=== PATIENT | male | born 1980 | race Caucasian/White ===

== ENCOUNTER 2022-10-12 09:40 | Emergency (ER) | payer OTHER ==
[2022-10-12 09:57] VITALS: BP 160/84; PULSE 90; RESP 18; TEMP 98.9; BMI 25.9
[2022-10-12] MEDS ORDERED: ACETAMINOPHEN 500 MG TABLET (FP) PO ONE (09:58)
[2022-10-12] MEDS ORDERED: DIPHTH,PERTUSS(ACELL),TET 0.5 ML DISP.SYRIN IM ONE ×2 (09:58→10:11)
[2022-10-12] MEDS ORDERED: ACETAMINOPHEN 500 MG TABLET (FP) ONE (10:10)
== END 2022-10-12 10:29 | disposition home or self-care (01) ==
LOC: FER 09:40
PROC: 0HQGXZZ Repair Left Hand Skin, External Approach (ICD-10-PCS; principal; 2022-10-12)
PROC: 3E0234Z Introduction of Serum, Toxoid and Vaccine into Muscle, Percutaneous Approach (ICD-10-PCS; 2022-10-12)
DX: S61.012A Laceration without foreign body of left thumb without damage to nail, initial encounter (principal); S61.213A Laceration without foreign body of left middle finger without damage to nail, initial encounter; W26.8XXA Contact with other sharp object(s), not elsewhere classified, initial encounter
CPT/HCPCS: 90715; 99283-25